=== PATIENT | female | born 1965 | race Caucasian/White ===

== ENCOUNTER 2021-01-02 17:47 | Emergency (ER) | payer OTHER, BC ==
[2021-01-02] MEDS ORDERED: IBUPROFEN600 MG PO (21:12)
[2021-01-02] MEDS ORDERED: NORFLEX 100 MG100 MG PO (21:12)
== END 2021-01-02 21:30 | disposition home or self-care (01) ==
LOC: ER1 17:47
DX: M54.9 Dorsalgia, unspecified (principal); M54.2 Cervicalgia; I10 Essential (primary) hypertension; Z88.1 Allergy status to other antibiotic agents; V49.40XA Driver injured in collision with unspecified motor vehicles in traffic accident, initial encounter; Y92.410 Unspecified street and highway as the place of occurrence of the external cause
CPT/HCPCS: 99283